=== PATIENT | male | born 1985 | race Two or more races ===

== ENCOUNTER 2021-01-13 18:23 | Emergency (ER) | payer OTHER ==
[~2021-01-13] VITALS: Ht 172.7 cm; Wt 74.8 kg
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
--- NOTE | 2021-01-13 18:41 | NUR ---
PT SEEN AND EXAMINED BY .
--- NOTE | 2021-01-13 18:56 | NUR ---
URINE SPECIMEN COLLECTED AND SENT TO LAB.
--- NOTE | 2021-01-13 18:58 | NUR ---
ER PHLEB AT BEDSIDE FOR BLOOD DRAW.
[2021-01-13] MEDS ORDERED: OLANZAPINE 5 MG TABLET ONE (19:00)
[2021-01-13] MEDS ORDERED: OLANZAPINE 5 MG TABLET PO ONE (19:00)
[2021-01-13 19:06] LABS: BILIRUBIN,URINE Negative (NEGATIVE); COLOR,URINE YELLOW (YELLOW); LEUKOCYTE ESTERASE ,URINE Negative (NEGATIVE); NITRITE, URINE Negative (NEGATIVE); PH,URINE 5.5 (5.0-8.0); PROTEIN,URINE Negative (NEGATIVE); UGLUCOSE Negative (NEGATIVE); UROBILINOGEN,URINE 0.2 EU/dL (0.2)
[2021-01-13 19:08] LABS: BASOPHILS % (AUTO) 0.4 % (0.0-2.0); EOSINOPHILS % (AUTO) 0.5 % (0.0-6.0); HEMATOCRIT 41 % (39-51); HEMOGLOBIN 13.8 g/dL (13.5-17.5); LYMPHOCYTES # (AUTO) 2.7 /CMM (0.8-4.8); LYMPHOCYTES % (AUTO) 26.7 % (20.0-44.0); MEAN CORPUSCULAR HGB CONC 34 g/dl (31.0-36.0); MEAN CORPUSCULAR VOLUME 88 fL (80-96); MONOCYTES # (AUTO) 1.2 /CMM (0.1-1.30); NEUTROPHILS # (AUTO) 6.1 /CMM (1.8-8.9); NEUTROPHILS % (AUTO) 60.4 % (43.0-81.0); PLATELET COUNT (AUTO) 382 /CMM (150-450); RED BLOOD CELL COUNT(AUTO) 4.66 MIL/uL (4.5-6.0)
[2021-01-13 19:11] LABS: BACTERIA,URINE Rare /HPF (None Seen); SQUAMOUS EPITHELIAL CELL,UR Few /HPF (None Seen); WBC,URINE NONE SEEN /HPF (0-3)
[2021-01-13 19:21] LABS: CALCIUM, SERUM 8.7 mg/dL (8.5-10.1); CARBON DIOXIDE 24 mmol/L (21-32); CHLORIDE 104 mmol/L (98-107); GLUCOSE 83 mg/dL (74-106); POTASSIUM 3.7 mmol/L (3.5-5.1); SODIUM SERUM 141 mmol/L (136-145); UREA NITROGEN, BLOOD 13 mg/dL (7-18)
[2021-01-13 19:25] LABS: ALANINE AMINOTRANSFERASE 56 U/L (12-78); ALBUMIN 4.1 g/dL (3.4-5.0); ALCOHOL, BLOOD 67 mg/dL (0-0); ALKALINE PHOSPHATASE 91 U/L (46-116); ASPARTATE AMINOTRANSFERASE 139 U/L (15-37); BILIRUBIN,DIRECT 0.2 mg/dL (0.0-0.2); BILIRUBIN,TOTAL 0.7 mg/dL (0.2-1.0); TOTAL PROTEIN, SERUM 7.4 g/dL (6.4-8.2)
[2021-01-13 19:26] LABS: ACETAMINOPHEN < 2 ug/ml (10-30)
--- NOTE | 2021-01-13 19:38 | NUR ---
[employer] AT BEDSIDE SPEAKING TO PT
--- NOTE | 2021-01-13 19:42 | NUR ---
PT AMBULATED TO THE RESTROOM.
[2021-01-13] MEDS ORDERED: LORAZEPAM 1 MG TABLET PO ONE (20:00)
[2021-01-13] MEDS ORDERED: LORAZEPAM 1 MG TABLET ONE (20:01)
--- NOTE | 2021-01-13 20:09 | NUR ---
Pt refused to take the ativan. Pt spit out the medication.
[2021-01-13] MEDS ORDERED: diphenhydrAMINE HCL 50 MG/ML VIAL ONE (20:16)
[2021-01-13] MEDS ORDERED: LORAZEPAM INJ 2 MG/ML VIAL ONE (20:16)
[2021-01-13] MEDS ORDERED: HALOPERIDOL LACTATE INJ 5 MG/ML VIAL ONE (20:16)
[2021-01-13] MEDS ORDERED: LORAZEPAM INJ 2 MG/ML VIAL IM ONE (20:30)
[2021-01-13] MEDS ORDERED: diphenhydrAMINE HCL 50 MG/ML VIAL IM ONE (20:30)
[2021-01-13] MEDS ORDERED: HALOPERIDOL LACTATE INJ 5 MG/ML VIAL IVP ONE (20:30)
[2021-01-13] MEDS ORDERED: HALOPERIDOL LACTATE INJ 5 MG/ML VIAL IM ONE (20:30)
--- NOTE | 2021-01-14 05:23 | NUR ---
Patient discharged to home in stable condition. Written and verbal after care instructions given. Patient verbalizes understanding of instruction. Pt AAOX4. Ambulatory with steady gait. vss.
[2021-01-14 05:24] VITALS: BP 123/73
== END 2021-01-14 05:24 | disposition home or self-care (01) ==
LOC: ER 18:35
DX: F15.10 Other stimulant abuse, uncomplicated (principal); R45.1 Restlessness and agitation
CPT/HCPCS: 36415; 80048; 80076; 80299; 80307; 80320; 81001; 85025; 96372 ×2; 96374; 99284; J1200; J1630; J2060; G0480

== ENCOUNTER 2021-05-24 11:09 | Emergency (ER) | payer MEDICAID, OTHER ==
[~2021-05-24] VITALS: Ht 165.1 cm; Wt 68.0 kg
[2021-05-24 11:16] VITALS: BP 128/82
--- NOTE | 2021-05-24 11:51 | NUR ---
Called to room patient. NO Longer in WR- [facility]
== END 2021-05-24 11:52 | disposition home or self-care (01) ==
LOC: ER 11:18
DX: Z53.21 Procedure and treatment not carried out due to patient leaving prior to being seen by health care provider (principal); M79.605 Pain in left leg; M79.604 Pain in right leg

== ENCOUNTER 2021-11-25 18:17 | Emergency (ER) | payer MEDICAID ==
[~2021-11-25] VITALS: Ht 172.7 cm; Wt 81.6 kg
--- NOTE | 2021-11-25 18:45 | NUR ---
PATIENT BROUGHT IN BY RA-78. PATIENT ADMITTED TO TAKING METH. CURRENTLY EXPERIENCING PARANOIA, HEARING VOICES, FEELING ANXIOUS. PATIENT A/O X3, DENIES CHEST PAIN. NO RESPIRATORY S/SX NOTED. CALM AND COOPERATIVE AT THIS TIME. PATIENT WAS SEEN BY DR RAMON AND WILL CONTINUE TO MONITOR.
[2021-11-25 19:10] LABS: BILIRUBIN,URINE SMALL (NEGATIVE); COLOR,URINE YELLOW (YELLOW); LEUKOCYTE ESTERASE ,URINE NEGATIVE (NEGATIVE); NITRITE, URINE NEGATIVE (NEGATIVE); PROTEIN,URINE TRACE mg/dl (NEGATIVE); UGLUCOSE NEGATIVE (NEGATIVE)
--- NOTE | 2021-11-25 19:20 | NUR ---
PATIENT PLACED ON 5150 HOLD BY [employer]
[2021-11-25 19:27] LABS: RBC,URINE 0-2 /HPF (0-2)
[2021-11-25 19:28] LABS: BACTERIA,URINE FEW /HPF (None Seen); CALCIUM CARBONATE CRYSTALS,UR None Seen /HPF (None Seen); CALCIUM OXALATE CRYSTALS,UR FEW /HPF (None Seen); CALCIUM PHOSPHATE CRYSTALS,UR None Seen /HPF (None Seen); COARSE GRANULAR CASTS,URINE None Seen /LPF (None Seen); CYSTINE CRYSTALS,URINE None Seen /HPF (None Seen); FATTY CASTS,URINE None Seen /LPF (None Seen); FINE GRANULAR CASTS,URINE None Seen /LPF (None Seen); HYALINE CASTS, URINE None Seen /LPF (None Seen); MUCUS,URINE None Seen /LPF (None Seen); OTHER CRYSTALS,URINE None Seen /HPF (None Seen); RED BLOOD CELL CASTS,URINE None Seen /LPF (None Seen); SPERM,URINE None Seen /HPF (None Seen); SQUAMOUS EPITHELIAL CELL,UR FEW /HPF (None Seen); TRICHOMONAS,URINE None Seen /HPF (None Seen); TRIPLE PHOSPHATE CRYSTAL,UR None Seen /HPF (None Seen); TYROSINE CRYSTAL,URINE None seen /HPF (None Seen); URIC ACID CRYSTALS,URINE None Seen /HPF (None Seen); URINE AMORPHOUS PHOSPHATES None Seen /HPF (None Seen); URINE AMORPHOUS URATE None Seen /HPF (None Seen); WAXY CASTS,URINE None Seen /LPF (None Seen); WBC,URINE 0-2 /HPF (0-3); YEAST,URINE None Seen /HPF (None Seen)
[2021-11-25 19:32] LABS: ALANINE AMINOTRANSFERASE 34 U/L (12-78); ALCOHOL, BLOOD < 3 mg/dL (0-0); ALKALINE PHOSPHATASE 72 U/L (46-116); ASPARTATE AMINOTRANSFERASE 19 U/L (15-37); BILIRUBIN,DIRECT 0.1 mg/dL (0.0-0.2); BILIRUBIN,TOTAL 0.1 mg/dL (0.2-1.0); CALCIUM, SERUM 8.1 mg/dL (8.5-10.1); CARBON DIOXIDE 27 mmol/L (21-32); CHLORIDE 107 mmol/L (98-107); CREATININE 0.6 mg/dL (0.6-1.3); GLUCOSE 104 mg/dL (74-106); POTASSIUM 3.5 mmol/L (3.5-5.1); TOTAL PROTEIN, SERUM 5.9 g/dL (6.4-8.2); UREA NITROGEN, BLOOD 6 mg/dL (7-18)
[2021-11-25 19:36] LABS: ACETAMINOPHEN 0 ug/ml (10-30)
[2021-11-25 19:47] LABS: SODIUM SERUM 140 mmol/L (136-145)
[2021-11-25 21:22] LABS: BASOPHILS % (AUTO) 0.3 % (0.0-2.0); EOSINOPHILS % (AUTO) 1.7 % (0.0-6.0); HEMATOCRIT 37 % (39-51); HEMOGLOBIN 12.1 g/dL (13.5-17.5); LYMPHOCYTES # (AUTO) 1.3 K/uL (0.8-4.8); LYMPHOCYTES % (AUTO) 24.7 % (20.0-44.0); MEAN CORPUSCULAR HGB CONC 33 g/dl (31.0-36.0); MEAN CORPUSCULAR VOLUME 90 fL (80-96); MONOCYTES # (AUTO) 0.5 K/uL (0.1-1.30); MONOCYTES % (AUTO) 8.8 % (2.0-12.0); NEUTROPHILS # (AUTO) 3.4 K/uL (1.8-8.9); NEUTROPHILS % (AUTO) 64.5 % (43.0-81.0); PLATELET COUNT (AUTO) 424 K/uL (150-450); RED BLOOD CELL COUNT(AUTO) 4.13 MIL/uL (4.5-6.0); WHITE BLOOD COUNT (AUTO) 5.2 K/uL (4.3-11.0)
--- NOTE | 2021-11-26 05:48 | NUR ---
PATIENT IS AWAKE, ALERT AND ORIENTED. DENIED SI/HI. AMBULATORY WITH STD GAITS. PO INTAKE TOELRATED WELL. REPORTED FEELING WELL AND WILLING TO LEAVE. MD MADE AWARE
--- NOTE | 2021-11-26 05:52 | NUR ---
NO 5150 HOLD WAS FOUND IN THE PATIENT'S CHART; PATIENT DENIED SI/HI
--- NOTE | 2021-11-26 06:08 | NUR ---
NO 5150 HOLD WAS FOUND IN THE CHART.
--- NOTE | 2021-11-26 06:11 | NUR ---
Patient discharged to home in stable condition. Written and verbal after care instructions given. Patient verbalizes understanding of instruction.
[2021-11-26 06:17] VITALS: BP 128/75
== END 2021-11-26 06:17 | disposition home or self-care (01) ==
LOC: ER 18:20
DX: F15.10 Other stimulant abuse, uncomplicated (principal); Z59.00 Homelessness unspecified
CPT/HCPCS: 36415; 80048-TC; 80076-TC; 81001; 85025-TC; G0480

== ENCOUNTER 2021-12-24 20:47 | Emergency (ER) | payer MEDICAID ==
[~2021-12-24] VITALS: Ht 172.7 cm; Wt 65.8 kg
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
--- NOTE | 2021-12-24 21:05 | NUR ---
URINE COLLECTED AND SENT TO LAB
[2021-12-24 21:17] LABS: BILIRUBIN,URINE NEGATIVE (NEGATIVE); COLOR,URINE YELLOW (YELLOW); LEUKOCYTE ESTERASE ,URINE NEGATIVE (NEGATIVE); NITRITE, URINE NEGATIVE (NEGATIVE); PH,URINE 5.5 (5.0-8.0); PROTEIN,URINE NEGATIVE (NEGATIVE); UGLUCOSE NEGATIVE (NEGATIVE); UROBILINOGEN,URINE 0.2 EU/dL (0.2)
[2021-12-24 22:01] LABS: BASOPHILS % (AUTO) 0.6 % (0.0-2.0); EOSINOPHILS % (AUTO) 0.9 % (0.0-6.0); HEMATOCRIT 43 % (39-51); HEMOGLOBIN 14.2 g/dL (13.5-17.5); LYMPHOCYTES # (AUTO) 2.2 K/uL (0.8-4.8); LYMPHOCYTES % (AUTO) 27.2 % (20.0-44.0); MEAN CORPUSCULAR HGB CONC 33 g/dl (31.0-36.0); MEAN CORPUSCULAR VOLUME 88 fL (80-96); MONOCYTES # (AUTO) 0.5 K/uL (0.1-1.30); MONOCYTES % (AUTO) 6.2 % (2.0-12.0); NEUTROPHILS # (AUTO) 5.3 K/uL (1.8-8.9); NEUTROPHILS % (AUTO) 65.1 % (43.0-81.0); PLATELET COUNT (AUTO) 462 K/uL (150-450); RED BLOOD CELL COUNT(AUTO) 4.88 MIL/uL (4.5-6.0); WHITE BLOOD COUNT (AUTO) 8.1 K/uL (4.3-11.0)
[2021-12-24 22:15] LABS: CALCIUM, SERUM 8.7 mg/dL (8.5-10.1); CREATININE 0.8 mg/dL (0.6-1.3); POTASSIUM 3.6 mmol/L (3.5-5.1)
[2021-12-24 22:22] LABS: BILIRUBIN,TOTAL 0.2 mg/dL (0.2-1.0); TOTAL PROTEIN, SERUM 7.5 g/dL (6.4-8.2)
--- NOTE | 2021-12-24 22:40 | NUR ---
COVID SWAB DONE AND SENT TO LAB
--- NOTE | 2021-12-25 05:00 | NUR ---
PATIENT IN ROOM RESTING. VSS, PT IS AFEBRILE. PROVED WITH PO FLUIDS. PATIENT CALM AND COOPERATIVE. WILL CONTINUE TO MONITOR.
[2021-12-25 05:57] VITALS: BP 122/68
--- NOTE | 2021-12-25 06:00 | NUR ---
PATIENT IN ROOM MOVING AROUND FREELY, NO RESTRAINTS NOTED.
--- NOTE | 2021-12-25 06:41 | NUR ---
PATIENT BREATHING. EYES CLOSED. NO COMPLAINTS. BLANKET OVER BODY.
--- NOTE | 2021-12-25 06:41 | NUR ---
DOUBLE CHECKED ON PATIENT, STILL BREATHING.
--- NOTE | 2021-12-25 06:56 | NUR ---
PT HAS BEEN ACCEPTED TO [facility]. PT WILL BE UNDER DR ROSENBERG / STRATEGIC SOLUTIONS CONSULTANTJAISON VELAZQUEZ [phone]
--- NOTE | 2021-12-25 06:57 | NUR ---
VIOLA FROM [facility] CALLED TO REQUEST FOR TRANSPORT. WILL CALL BACK WITH STEPHEN
--- NOTE | 2021-12-25 06:59 | NUR ---
CALLED FOR REPORT, NOTED TO CALL AFTER 8AM.
--- NOTE | 2021-12-25 07:15 | NUR ---
REPORT GIVEN TO JAISON VARGAS FOR [facility].
--- NOTE | 2021-12-25 08:13 | NUR ---
Karan oneal in [facility] - 12/25/21 at 0816 by VLADISLAV REPORT GIVEN TO CHARGE NURSE [facility]. SHE WILL FIND A PAYROLL MASTER TO TANNERY WORKER PATIENT.
--- NOTE | 2021-12-25 08:13 | NUR ---
REPORT GIVEN TO CHARGE NURSE [facility]. SHE WILL FIND A PRACTICE PERFORMANCE MANAGER TO PICK-UP PATIENT. ACCEPTING DOCTOR DR. ROSENBERG
--- NOTE | 2021-12-25 08:13 | NUR ---
Karan oneal in [facility] - 12/25/21 at 0821 by NESSA REPORT GIVEN TO CHARGE NURSE [facility]. SHE WILL FIND A FILM CUTTER TO PICK-UP PATIENT.
--- NOTE | 2021-12-25 09:40 | NUR ---
PATIENT INCLUSION TEACHER BY [facility]
== END 2021-12-25 09:40 ==
LOC: ER 20:54
DX: R45.851 Suicidal ideations (principal); F23 Brief psychotic disorder; F15.10 Other stimulant abuse, uncomplicated; F10.129 Alcohol abuse with intoxication, unspecified; Y90.4 Blood alcohol level of 80-99 mg/100 ml; Z59.00 Homelessness unspecified; R00.0 Tachycardia, unspecified; Z20.822 Contact with and (suspected) exposure to COVID-19
CPT/HCPCS: 36415; 80048; 80076; 80143; 80307; 80320; 81003; 85025; 87426; 99285; C9803; G0480

== ENCOUNTER 2022-03-21 15:46 | Emergency (ER) | payer MEDICAID ==
[~2022-03-21] VITALS: Ht 172.7 cm; Wt 77.1 kg
--- NOTE | 2022-03-21 16:21 | NUR ---
TO ER BED 18, BIB RA 78 WALKING,HEARING VOICES BECAUSE HE'S OUT OF MEDS,REQUESTING VOLUNTARY ADMISSION TO PSYCH FACILITY, AAOX3, BREATHING EVEN AND NON LABORED, AWAITING MD ORDERS
--- NOTE | 2022-03-21 16:38 | NUR ---
TO ER 18,1:1 SITTER,SECURITY FOR WANDING.
[2022-03-21 17:09] LABS: BASOPHILS % (AUTO) 0.5 % (0.0-2.0); EOSINOPHILS % (AUTO) 0.3 % (0.0-6.0); HEMATOCRIT 41 % (39-51); HEMOGLOBIN 13.3 g/dL (13.5-17.5); LYMPHOCYTES # (AUTO) 1.4 K/uL (0.8-4.8); LYMPHOCYTES % (AUTO) 22.9 % (20.0-44.0); MEAN CORPUSCULAR HGB CONC 33 g/dl (31.0-36.0); MEAN CORPUSCULAR VOLUME 89 fL (80-96); MONOCYTES # (AUTO) 0.4 K/uL (0.1-1.30); MONOCYTES % (AUTO) 6.8 % (2.0-12.0); NEUTROPHILS # (AUTO) 4.1 K/uL (1.8-8.9); NEUTROPHILS % (AUTO) 69.5 % (43.0-81.0); PLATELET COUNT (AUTO) 391 K/uL (150-450); RED BLOOD CELL COUNT(AUTO) 4.59 MIL/uL (4.5-6.0)
[2022-03-21 17:20] LABS: BILIRUBIN,URINE NEGATIVE (NEGATIVE); COLOR,URINE YELLOW (YELLOW); LEUKOCYTE ESTERASE ,URINE NEGATIVE (NEGATIVE); NITRITE, URINE NEGATIVE (NEGATIVE); PH,URINE 5.5 (5.0-8.0); PROTEIN,URINE NEGATIVE (NEGATIVE); UGLUCOSE NEGATIVE (NEGATIVE); UROBILINOGEN,URINE 0.2 EU/dL (0.2)
[2022-03-21 17:32] LABS: CALCIUM, SERUM 8.6 mg/dL (8.5-10.1); CARBON DIOXIDE 24 mmol/L (21-32); CHLORIDE 109 mmol/L (98-107); CREATININE 0.7 mg/dL (0.6-1.3); GLUCOSE 107 mg/dL (74-106); POTASSIUM 3.8 mmol/L (3.5-5.1); SODIUM SERUM 144 mmol/L (136-145); UREA NITROGEN, BLOOD 12 mg/dL (7-18)
[2022-03-21 17:47] LABS: ALANINE AMINOTRANSFERASE 26 U/L (12-78); ALBUMIN 3.9 g/dL (3.4-5.0); ALCOHOL, BLOOD 40 mg/dL (0-0); ALKALINE PHOSPHATASE 71 U/L (46-116); ASPARTATE AMINOTRANSFERASE 12 U/L (15-37); BILIRUBIN,DIRECT 0.1 mg/dL (0.0-0.2); BILIRUBIN,TOTAL 0.1 mg/dL (0.2-1.0); TOTAL PROTEIN, SERUM 7.3 g/dL (6.4-8.2)
[2022-03-21 17:49] LABS: ACETAMINOPHEN < 0 ug/ml (10-30)
[2022-03-21 18:58] VITALS: BP 135/74
--- NOTE | 2022-03-21 19:16 | NUR ---
FAXED COVID RESULT
--- NOTE | 2022-03-21 19:27 | NUR ---
PT ACCEPTED AT [facility].
--- NOTE | 2022-03-21 19:35 | NUR ---
CALLED THE FACILITY TO INFORM RN SYSTEMS DESIGN ENGINEER THAT PT WAS ABLE TO GO WITH THE TRANSPORT WITH THE 2 OTHER PATIENT THAT IS GOING THERE.
--- NOTE | 2022-03-21 19:41 | NUR ---
PT IS PICKED UP BY [facility]. ALL BELONGINGS AND PATIENT PACKETS GIVEN
== END 2022-03-21 19:43 ==
LOC: ER 15:49
DX: F20.9 Schizophrenia, unspecified (principal); Z59.00 Homelessness unspecified; F19.10 Other psychoactive substance abuse, uncomplicated; F10.10 Alcohol abuse, uncomplicated; Y90.2 Blood alcohol level of 40-59 mg/100 ml; Z20.822 Contact with and (suspected) exposure to COVID-19
CPT/HCPCS: 99285; 85025; 80048; 80076; 81003; 36415; 87426; 80143; 80320; 80307; C9803; G0480

== ENCOUNTER 2022-04-25 19:14 | Emergency (ER) | payer MEDICAID ==
[~2022-04-25] VITALS: Ht 172.7 cm; Wt 77.1 kg
--- NOTE | 2022-04-25 19:17 | NUR ---
BIBRA 860 C/O +SI WANTS VOL PSYCH ADMIT -HI. PT A/OX3. TOLERATING R/A WELL WITH NO SOB. AMB WITH STEADY GAIT. PT CHANGED IN GOWN, BELONGINGS COLLECTED AND SENT TO [facility]. WANDED BY SECURITY.
--- NOTE | 2022-04-25 19:28 | NUR ---
SWAB FOR COVID19 SENT TO LAB
--- NOTE | 2022-04-25 19:35 | NUR ---
DEVELOPMENT SCIENTIST AT PT'S BEDSIDE
[2022-04-25 21:12] LABS: BASOPHILS # (AUTO) 0.1 K/uL (0.0-0.2); BASOPHILS % (AUTO) 1.1 % (0.0-2.0); EOSINOPHILS % (AUTO) 3.9 % (0.0-6.0); HEMATOCRIT 39 % (39-51); HEMOGLOBIN 13.2 g/dL (13.5-17.5); LYMPHOCYTES % (AUTO) 32.2 % (20.0-44.0); MEAN CORPUSCULAR HGB CONC 34 g/dl (31.0-36.0); MEAN CORPUSCULAR VOLUME 86 fL (80-96); MONOCYTES # (AUTO) 0.7 K/uL (0.1-1.30); MONOCYTES % (AUTO) 11.9 % (2.0-12.0); NEUTROPHILS # (AUTO) 3.2 K/uL (1.8-8.9); NEUTROPHILS % (AUTO) 50.9 % (43.0-81.0); PLATELET COUNT (AUTO) 479 K/uL (150-450); RED BLOOD CELL COUNT(AUTO) 4.57 MIL/uL (4.5-6.0); WHITE BLOOD COUNT (AUTO) 6.3 K/uL (4.3-11.0)
[2022-04-25 21:16] LABS: BILIRUBIN,URINE NEGATIVE (NEGATIVE); COLOR,URINE YELLOW (YELLOW); LEUKOCYTE ESTERASE ,URINE NEGATIVE (NEGATIVE); NITRITE, URINE NEGATIVE (NEGATIVE); PH,URINE 5.5 (5.0-8.0); PROTEIN,URINE NEGATIVE (NEGATIVE); UGLUCOSE NEGATIVE (NEGATIVE); UROBILINOGEN,URINE 0.2 EU/dL (0.2)
[2022-04-25 21:27] LABS: ALANINE AMINOTRANSFERASE 38 U/L (12-78); ALBUMIN 3.7 g/dL (3.4-5.0); ALCOHOL, BLOOD 69 mg/dL (0-0); ALKALINE PHOSPHATASE 97 U/L (46-116); ASPARTATE AMINOTRANSFERASE 41 U/L (15-37); BILIRUBIN,DIRECT 0.2 mg/dL (0.0-0.2); BILIRUBIN,TOTAL 0.5 mg/dL (0.2-1.0); CALCIUM, SERUM 8.5 mg/dL (8.5-10.1); CARBON DIOXIDE 28 mmol/L (21-32); CREATININE 0.8 mg/dL (0.6-1.3); GLUCOSE 106 mg/dL (74-106); TOTAL PROTEIN, SERUM 7.1 g/dL (6.4-8.2); UREA NITROGEN, BLOOD 5 mg/dL (7-18)
[2022-04-25 21:44] LABS: CHLORIDE 91 mmol/L (98-107); SODIUM SERUM 130 mmol/L (136-145)
[2022-04-25 21:46] LABS: POTASSIUM 2.3 mmol/L (3.5-5.1)
--- NOTE | 2022-04-25 21:46 | NUR ---
CRITICAL: POTASSIUM 2.3, MD AWARE
[2022-04-25 21:47] LABS: ACETAMINOPHEN < 10 ug/ml (10-30)
[2022-04-25] MEDS ORDERED: POTASSIUM CL. PREMIX PERIPHER. 50 ML ONE ×2 (21:56→23:03)
[2022-04-25] MEDS ORDERED: POTASSIUM CHLORIDE 20 MEQ TAB.PRT.SR PO ONE (22:00)
--- NOTE | 2022-04-25 22:03 | NUR ---
20G LF ESTABLISHED. SALINE LOCKED.
[2022-04-25] MEDS: POTASSIUM CL. PREMIX PERIPHER. 50 ML IV SCH ×2 (22:17→23:09)
[2022-04-26] MEDS ORDERED: POTASSIUM CL. PREMIX PERIPHER. 50 ML ONE ×2 (00:02→01:30)
[2022-04-26] MEDS: POTASSIUM CL. PREMIX PERIPHER. 50 ML IV SCH ×2 (00:20→01:33)
[2022-04-26] MEDS ORDERED: MAGNESIUM OXIDE 400 MG TABLET ONE (00:22)
[2022-04-26] MEDS ORDERED: MAGNESIUM OXIDE 400 MG TABLET PO ONE (00:30)
--- NOTE | 2022-04-26 01:44 | NUR ---
PT PULLED OUT IV LINE AND STATED HE IS NO LONGER SUICIDAL AND WANTS TO LEAVE. MADE AWARE.
--- NOTE | 2022-04-26 01:48 | NUR ---
Patient does not wish to proceed with medical care recommended by Dr. Gómez. Patient given information related to possible complications, up to and including , which could occur as a result of leaving the hospital at this time. Patient verbalizes understanding of risks involved due to leaving against medical advice. Patient has signed AMA form.
[2022-04-26 01:49] VITALS: BP 149/80
== END 2022-04-26 01:50 | disposition left against medical advice (07) ==
LOC: ER 19:19
DX: R45.851 Suicidal ideations (principal); F10.10 Alcohol abuse, uncomplicated; Y90.1 Blood alcohol level of 20-39 mg/100 ml; E87.6 Hypokalemia; Z20.822 Contact with and (suspected) exposure to COVID-19; Z53.29 Procedure and treatment not carried out because of patient's decision for other reasons; Z59.00 Homelessness unspecified; Z91.14 Patient's other noncompliance with medication regimen
CPT/HCPCS: 99285; 96365; 96366 ×2; 93005; 85025; 80048; 80076; 81003; 36415; 87426; 80143; 80320; 80307; J7030 ×2; J3480 ×4; C9803; G0480